=== PATIENT | female | born 1955 | race Caucasian/White ===

== ENCOUNTER 2021-02-21 12:08 | Emergency (ER) | payer SELFPAY ==
--- NOTE | 2021-02-21 13:59 | RAD REPORT ---
EXAM DESCRIPTION: RAD - Humerus Right - 02/21/2021 1:50 pm CLINICAL HISTORY: PAIN FINDINGS: Mildly impacted fracture of the proximal right humerus is present. No dislocation is evide nt.
--- NOTE | 2021-02-21 14:13 | ER ---
Nurse's Notes [facility] Name: Isadora Fall Age: 65 yrs Sex: Female : 1955 Arrival Date: 02/21/2021 Time: 12:13 Bed 14 Private MD: Diagnosis: Displaced fracture head of right humerus Presentation: 02/21 12:39 Chief complaint: Patient states: R shoulder/ upper arm pain that began this morning ss after falling from a standing in the garden. Coronavirus screen: Client denies travel out of the [place] in the last 14 days. Ebola Screen: Patient denies exposure to infectious person. Patient denies travel to an Ebola-affected area in the 21 days before illness onset. Initial Sepsis Screen: Does the patient meet any 2 criteria? No. Patient's initial sepsis screen is negative. Does the patient have a suspected source of infection? No. Patient's initial sepsis screen is negative. Risk Assessment: Do you want to hurt yourself or someone else? Patient reports no desire to harm self or others. Onset of symptoms was February 21, 2021. 12:39 Method Of Arrival: Ambulatory ss 12:39 Acuity: ASHLEY 4 ss Triage Assessment: 13:06 General: Appears uncomfortable, Behavior is calm, cooperative, appropriate for age. ll1 Pain: Complains of pain in R shoulder Quality of pain is described as aching. Neuro: No deficits noted. Cardiovascular: No deficits noted. Respiratory: No deficits noted. Musculoskeletal: Circulation, motion, and sensation intact. Capillary refill < 3 seconds, Range of motion: limited in R shoulder Tenderness present in R shoulder Reports pain in R shoulder. Injury Description: fall/R shoulder pain. Historical: - Allergies: 13:05 No Known Allergies; ll1 - PSHx: 13:05 None; ll1 - Immunization history:: Adult Immunizations up to date. - Social history:: Smoking status: Patient denies any tobacco usage or history of. Screenin:38 Abuse screen: Denies threats or abuse. Nutritional screening: No deficits noted. ll1 Tuberculosis screening: No symptoms or risk factors identified. Fall Risk Fall in past 12 months (25 points). Total Leon Fall Scale indicates No Risk (0-24 pts). Assessment: 14:00 Reassessment: No changes from previously documented assessment. Patient and/or family ll1 updated on plan of care and expected duration. Pain level reassessed. 14:35 Reassessment: No changes from previously documented assessment. Patient and/or family ll1 updated on plan of care and expected duration. Pain level reassessed. Patient is alert, oriented x 3, equal unlabored respirations, skin warm/dry/pink. Vital Signs: 12:39 BP 137 / 82; Pulse 91; Resp 18; Temp 98.7(TE); Pulse Ox 98% on R/A; Weight 97.52 kg; ss Height 5 ft. 8 in. (172.72 cm); Pain 0/10; 14:34 BP 148 / 64; Pulse 94; Resp 17; Pulse Ox 97% on R/A; ll1 12:39 Body Mass Index 32.69 (97.52 kg, 172.72 cm) ED Course: 12:13 Patient arrived in ED. mr 12:29 Abdiel María, [facility]. kb 12:29 Jer Vargas MD is Attending Physician. kb 12:39 Arm band placed on right wrist. ss 12:41 Triage completed. ss 13:04 Audra Samaniego, RN is Primary Nurse. ll1 13:50 Humerus Right XRAY In Process Unspecified. EDMS 14:38 Patient has correct armband on for positive identification. Bed in low position. Call ll1 light in reach. Side rails up X 1. Cardiac monitoring not applicable on this patient. 14:38 No provider procedures requiring assistance completed. Patient did not have IV access ll1 during this emergency room visit. Administered Medications: 14:14 Not Given (Patient Refused): [place] (HYDROcodone-acetaminophen) 5 mg-325 mg 1 tabs PO ll1 once; RASS on ADMIN: Combtv4, Very Agttd3, Agttd2, Rstlss1, AlertClm0, Drwsy-1, Lt Sdtn-2, Mod Sdtn-3, Dp Sdtn-4, UnArsble-5 Outcome: 14:13 Discharge ordered by . kb 14:38 Discharged to home ambulatory. ll1 14:38 Condition: stable 14:38 Discharge instructions given to patient, Instructed on discharge instructions, follow up and referral plans. medication usage, Demonstrated understanding of instructions, follow-up care, medications, Prescriptions given X 1. 14:39 Patient left the ED. ll1 Signatures: Dispatcher [employer] EDMS María Meadows, GENAROC TUCKER-Franklin RockaIsadora mr Lydia Fam RN RN ss Audra Samaniego RN RN ll1
--- NOTE | 2021-02-21 14:13 | EDPHYS ---
Physician Documentation [facility] Name: Isadora Fall Age: 65 yrs Sex: Female : 1955 Arrival Date: 02/21/2021 Time: 12:13 Bed 14 Private MD: ED Physician Jer Vargas HPI: 02/21 16:28 This 65 yrs old Female presents to ER via Ambulatory with complaints of Fall kb Injury, Arm Pain. 16:28 Details of fall: The patient fell from an upright position, while walking. Onset: The kb symptoms/episode began/occurred just prior to arrival. Associated injuries: The patient sustained anterior aspect of right shoulder, decreased range of motion, painful injury. Severity of symptoms: At their worst the symptoms were moderate, in the emergency department the symptoms are unchanged. The patient has not experienced similar symptoms in the past. The patient has not recently seen a physician. Pt reports she tripped in the yard and landed on right shoulder. c/o pain and decreased ROM to right shoulder. . Historical: - Allergies: 13:05 No Known Allergies; ll1 - PSHx: 13:05 None; ll1 - Immunization history:: Adult Immunizations up to date. - Social history:: Smoking status: Patient denies any tobacco usage or history of. ROS: 16:28 Constitutional: Negative for fever, chills, and weight loss, Respiratory: Negative for kb shortness of breath, cough, wheezing, and pleuritic chest pain, Skin: Negative for injury, rash, and discoloration, Neuro: Negative for headache, weakness, numbness, tingling, and seizure. 16:28 MS/extremity: Positive for injury or acute deformity, decreased range of motion, pain. Exam: 16:26 Constitutional: This is a well developed, well nourished patient who is awake, alert, kb and in no acute distress. Head/Face: Normocephalic, atraumatic. Respiratory: Respirations even and unlabored. No increased work of breathing, no retractions or nasal flaring. Skin: Warm, dry with normal turgor. Normal color. Neuro: Awake and alert, GCS 15, oriented to person, place, time, and situation. Moves all extremities. Normal gait. 16:26 Musculoskeletal/extremity: Extremities: grossly normal except: noted in the anterior aspect of right shoulder: decreased ROM, pain, ROM: limited active range of motion, in the anterior aspect of right shoulder, Circulation is intact in all extremities. Sensation intact. Vital Signs: 12:39 BP 137 / 82; Pulse 91; Resp 18; Temp 98.7(TE); Pulse Ox 98% on R/A; Weight 97.52 kg; ss Height 5 ft. 8 in. (172.72 cm); Pain 0/10; 14:34 BP 148 / 64; Pulse 94; Resp 17; Pulse Ox 97% on R/A; ll1 12:39 Body Mass Index 32.69 (97.52 kg, 172.72 cm) ss MDM: 12:30 Patient medically screened. kb 14:02 Data reviewed: vital signs, nurses notes. Data interpreted: Pulse oximetry: on room air kb is 98 %. Interpretation: normal. Counseling: I had a detailed discussion with the patient and/or guardian regarding: the historical points, exam findings, and any diagnostic results supporting the discharge/admit diagnosis, radiology results, the need for outpatient follow up, a orthopedic surgeon, to return to the emergency department if symptoms worsen or persist or if there are any questions or concerns that arise at home. 02/21 12:33 Order name: Humerus Right XRAY; Complete Time: 14:02 kb 02/21 13:46 Order name: Sling; Complete Time: 14:04 kb 02/21 14:05 Order name: Shoulder Immobilizer; Complete Time: 14:09 kb Administered Medications: 14:14 Not Given (Patient Refused): [place] (HYDROcodone-acetaminophen) 5 mg-325 mg 1 tabs PO ll1 once; RASS on ADMIN: Combtv4, Very Agttd3, Agttd2, Rstlss1, AlertClm0, Drwsy-1, Lt Sdtn-2, Mod Sdtn-3, Dp Sdtn-4, UnArsble-5 Disposition: 02/22 07:30 Co-signature as Attending Physician, Jer Vargas MD I agree with the assessment and mindy plan of care. Disposition: 02/21/21 14:13 Discharged to Home. Impression: Displaced fracture head of right humerus. - Condition is Stable. - Discharge Instructions: Humerus Fracture Treated With Immobilization, Awee-so-Wbvh. - Prescriptions for Tylenol- Codeine #3 300-30 mg Oral Tablet - take 2 tablets by ORAL route every 6 hours As needed; 16 tablet. - Medication Reconciliation Form, Thank You Letter, Antibiotic Education, Prescription Opioid Use form. - Follow up: Emergency Department; When: As needed; Reason: Worsening of condition. Follow up: Private Physician; When: 2 - 3 days; Reason: Recheck today's complaints, Continuance of care, Re-evaluation by your physician. Signatures: Dispatcher [employer] EDMaría Headley, TUCKER-Randolph NULLP-Jer Aguirre MD MD cha Lewis, Lynsay RN RN ll1 Corrections: (The following items were deleted from the chart) 02/21 14:39 14:13 02/21/2021 14:13 Discharged to Home. Impression: Displaced fracture head of right ll1 humerus. Condition is Stable. Forms are Medication Reconciliation Form, Thank You Letter, Antibiotic Education, Prescription Opioid Use. Follow up: Emergency Department; When: As needed; Reason: Worsening of condition. Follow up: Private Physician; When: 2 - 3 days; Reason: Recheck today's complaints, Continuance of care, Re-evaluation by your physician. kb
[2021-02-21] MEDS ORDERED: HYDROCODONE/APAP 5/325 MG TAB ONE (14:30)
[2021-02-21 16:24] VITALS: TEMP 98.7
[2021-02-21 16:25] VITALS: BP 148/64; O2SAT 97
== END 2021-02-21 14:39 | disposition home or self-care (01) ==
LOC: ER 12:08
PROC: 2W38X1Z Immobilization of Right Upper Extremity using Splint (ICD-10-PCS; principal; 2021-02-21)
DX: S42.391A Other fracture of shaft of right humerus, initial encounter for closed fracture (principal); W01.0XXA Fall on same level from slipping, tripping and stumbling without subsequent striking against object, initial encounter; Y93.01 Activity, walking, marching and hiking; Y92.89 Other specified places as the place of occurrence of the external cause
CPT/HCPCS: 99283

== ENCOUNTER 2023-10-02 12:22 | Inpatient (IN) | payer MEDICARE, OTHER ==
--- OUTSIDE RECORDS SUMMARY | 2023-10-02 12:24 | XMS REPORT | Continuity of Care Document ---
:1955 Author Organization [facility] t Address [address] [place] [address] Care Team Providers Name Role Phone Nando Dean Attending Clinician Payers Payer Name Policy Type Policy Number Effective Date Expiration Date merissa [facility] [id number] (MEDICARE 00:00:00 REPLACEMENT HMO) Problems This patient has no known problems. Allergies, Adverse Reactions, Alerts This patient has no known allergies or adverse reactions. Medications This patient has no known medications. Procedures This patient has no known procedures. Encounters Start End Encounter Admission Attending Care Care Encounter Source Date/Time Date/Time Type Type Clinicians Facility Department ID 2023-06-18 2023-06-18 D2Me Nando [id number] [facility] [id number] [facility] 17:30:00 18:30:00 Jermaine [id number] [facility] [id number] 2023-03-20 2023-03-20 [id number] 00:00:00 00:00:00 [id number] [facility] 2022-08-31 2022-08-31 [facility] [id number] [facility] 00:00:00 00:00:00 [id number] [facility] l [facility] Results This patient has no known results.
[2023-10-02] MEDS ORDERED: FENTANYL CITR 100 MCG/2 ML ONE ×2 (12:50→15:06)
[2023-10-02] MEDS ORDERED: NA CHLORIDE 0.9% 1,000 ML ONE ×2 (12:50→14:51)
[2023-10-02] MEDS ORDERED: FAMOTIDINE 20 MG/2 ML VIAL IV ONE (12:50)
[2023-10-02] MEDS ORDERED: ONDANSETRON 4 MG/2 ML VIAL ONE (12:50)
[2023-10-02 12:51] LABS: Absolute Lymphocytes (CBC) 0.6 K/uL (0.7-4.9); Hematocrit 37.7 % (36.0-45.0); Lymphocytes % 4.4 % (15.3-44.8); MCV 89.8 fL (80-100); MPV 7.2 fL (7.6-11.3); Platelets 196 thou/uL (152-406)
[2023-10-02 12:56] LABS: Protime INR 1.14
[2023-10-02 13:17] LABS: Blood Morphology Comment NOT SEEN (NOT SEEN); Platelet Estimate ADEQ; White Blood Cell Scan OK (OK)
[2023-10-02 13:18] LABS: Albumin 3.5 g/dL (3.4-5.0); Bilirubin Direct 0.3 mg/dL (0-0.2); Bilirubin Indirect, Calculated 0.6 mg/dL (0.2-0.8); Bilirubin Total 0.9 mg/dL (0.2-1.0); Magnesium 1.2 mg/dL (1.6-2.4); Potassium 3.5 mEq/L (3.5-5.1); Protein, Total 6.9 g/dL (6.4-8.2)
--- NOTE | 2023-10-02 13:38 | ER ---
Nurse's Notes [facility] Name: Isadora Fall Age: 67 yrs Sex: Female : 1955 Arrival Date: 10/02/2023 Time: 12:22 Bed 19 Private MD: Diagnosis: Dizziness and giddiness;Displaced intertrochanteric fracture of right femur;Fall on same level, unspecified;Abnormal levels of other serum enzymes-elevated troponin;Elevated white blood cell count;Hypomagnesemia Presentation: 10/02 12:46 Chief complaint: EMS states: patient fell at home and is complaining of right hip pain. tm6 Coronavirus screen: Vaccine status: Patient reports being unvaccinated. Client denies travel out of the [place] in the last 14 days. Ebola Screen: Patient negative for fever greater than or equal to 101.5 degrees Fahrenheit, and additional compatible Ebola Virus Disease symptoms Patient denies exposure to infectious person. Patient denies travel to an Ebola-affected area in the 21 days before illness onset. No symptoms or risks identified at this time. Initial Sepsis Screen: Does the patient meet any 2 criteria? HR > 90 bpm. No. Patient's initial sepsis screen is negative. Does the patient have a suspected source of infection? No. Patient's initial sepsis screen is negative. Risk Assessment: Do you want to hurt yourself or someone else? Patient reports no desire to harm self or others. Onset of symptoms was October 02, 2023 at 10:00. 12:46 Method Of Arrival: EMS: [facility] tm6 12:46 Acuity: ASHLEY 3 tm6 Triage Assessment: 12:49 General: Appears in no apparent distress. Behavior is calm, cooperative, appropriate tm6 for age. Pain: Complains of pain in right hip Pain currently is 4 out of 10 on a pain scale. Aggravated by repositioning. EENT: No signs and/or symptoms were reported regarding the EENT system. Neuro: Level of Consciousness is awake, alert, obeys commands, Oriented to person, place, time, situation. Cardiovascular: Capillary refill < 3 seconds Patient's skin is warm and dry. Rhythm is sinus tachycardia. Respiratory: Airway is patent Respiratory effort is even, unlabored, Respiratory pattern is regular, symmetrical. GI: Abdomen is round non-distended. : No signs and/or symptoms were reported regarding the genitourinary system. Derm: No signs and/or symptoms reported regarding the dermatologic system. Musculoskeletal: Reports pain in right hip since fall 2-3 hours ago. Injury Description: fall injury to right hip. Historical: - Allergies: 12:49 No Known Allergies; tm6 - PMHx: 12:49 diabetes mellitus; Glaucoma; tm6 - PSHx: 12:49 eye surgery; tm6 - Immunization history:: Adult Immunizations up to date. - Social history:: Smoking status: Patient denies any tobacco usage or history of. Patient/guardian denies using alcohol. Screenin:53 [facility] ED Fall Risk Assessment (Adult) History of falling in the last 3 months, tm6 including since admission Yes- single mechanical fall (1 pt) Confusion or Disorientation No (0 pts) Intoxicated or Sedated No (0 pts) Impaired Gait Yes (1 pt) Mobility Assist Device Used Yes (1 pt) Altered Elimination No (0 pt) Score/Fall Risk Level 3 or more points = High Risk. Abuse screen: Denies threats or abuse. Denies injuries from another. Nutritional screening: No deficits noted. Tuberculosis screening: No symptoms or risk factors identified. Assessment: 12:53 Reassessment: see triage assessment. tm6 Vital Signs: 12:46 BP 100 / 52; Pulse 104; Resp 17; Temp 99(O); Pulse Ox 100% ; Weight 90.72 kg; Height 5 tm6 ft. 7 in. ; Pain 4/10; 12:49 BP 100 / 52; Pulse 106; Resp 17; Temp 99(O); Pulse Ox 100% on R/A; tm6 13:15 BP 142 / 125; Pulse 107; Resp 18; Pulse Ox 100% ; me1 13:45 BP 162 / 75; Pulse 103; Resp 17; Pulse Ox 100% on R/A; me1 14:15 BP 114 / 65; Pulse 100; Resp 17; Pulse Ox 98% on R/A; me1 14:36 BP 194 / 75; Pulse 104; Resp 18; Pulse Ox 100% on R/A; me1 15:24 BP 109 / 61; Pulse 79; Resp 16; Pulse Ox 100% on R/A; me1 16:31 BP 129 / 62; Pulse 78; Resp 18; Pulse Ox 100% ; me1 17:30 BP 128 / 78; Pulse 82; Resp 19; Pulse Ox 97% ; me1 18:00 BP 132 / 57; Pulse 84; Resp 17; Pulse Ox 100% on R/A; me1 12:46 Body Mass Index 31.32 (90.72 kg, 170.18 cm) tm6 12:46 Pain Scale: Adult tm6 ED Course: 12:24 Patient arrived in ED. eb 12:24 Jer Vargas MD is Attending Physician. mindy 12:42 Inserted saline lock: 20 gauge in left antecubital area, using aseptic technique. Blood tm6 collected. 12:43 PT-INR Sent. tm6 12:43 Type And Screen Sent. tm6 12:43 Troponin HS Sent. tm6 12:43 NT PRO-BNP Sent. tm6 12:43 Magnesium Sent. tm6 12:43 LFT's Sent. tm6 12:43 CBC with Diff Sent. tm6 12:43 Basic Metabolic Panel Sent. tm6 12:45 Aidan Rees, SUSHIL is Primary Nurse. tm6 12:49 Triage completed. tm6 12:49 Arm band placed on left wrist. EKG completed in triage. Results shown to MD. tm6 12:53 No provider procedures requiring assistance completed. tm6 12:53 Patient has correct armband on for positive identification. Bed in low position. Call tm6 light in reach. Side rails up X2. Provided Education on: pain scale and pain medication. Client placed on continuous cardiac and pulse oximetry monitoring. NIBP monitoring applied. Door closed. Noise minimized. Warm blanket given. 13:35 Linwood Rene is Hospitalizing Provider. mindy 13:41 XRAY Chest (1 view) In Process Unspecified. EDMS 13:41 Pelvis XRAY In Process Unspecified. EDMS 13:41 Femur Right XRAY In Process Unspecified. EDMS 15:42 IV discontinued, intact, bleeding controlled, No redness/swelling at site. Pressure me1 dressing applied. 15:43 Inserted saline lock: 22 gauge in left antecubital area, using aseptic technique. me1 Administered Medications: 12:42 Drug: NS 0.9% IV 1000 ml IV at 125 ml/hr continuous Route: IV; Rate: 125 ml/hr; Site: tm6 left antecubital; 18:34 Follow up: IV Status: Infusion continued upon admission me1 12:42 Drug: Famotidine IVP 20 mg IVP once; dilute with 10 mL 0.9% NaCl; give over 2 minutes tm6 Route: IVP; Site: left antecubital; 18:34 Follow up: Response: No adverse reaction me1 12:42 Drug: Ondansetron IVP 4 mg IVP once; over 2 minutes Route: IVP; Site: left antecubital; tm6 18:33 Follow up: Response: No adverse reaction me1 14:50 Drug: Aspirin PO Chewable Tablet 324 mg PO once; 81 mg tablets x 4 Route: PO; me1 18:33 Follow up: Response: No adverse reaction me1 14:50 Drug: Metoprolol PO 25 mg PO once Route: PO; me1 18:33 Follow up: Response: No adverse reaction me1 14:50 Drug: Magnesium Sulfate IVPB 2 grams IVPB once over 2 hrs Route: IVPB; Infused Over: 2 me1 hrs; Site: left antecubital; 16:58 Follow up: IV Status: Completed infusion me1 14:57 Drug: fentaNYL (PF) IVP 50 mcg IVP once Route: IVP; Site: left antecubital; me1 18:33 Follow up: Response: No adverse reaction me1 18:33 Follow up: Response: Pain is decreased me1 Medication: 12:53 VIS not applicable for this client. tm6 Outcome: 13:37 Decision to Hospitalize by Provider. mindy 18:45 Admitted to Tele accompanied by [facility], via stretcher, room 401, with chart, Report me1 called to SUSHIL Diaz 18:45 Condition: stable 19:12 Patient left the ED. me1 Signatures: Dispatcher [employer] Jer Celis MD MD cha Botello, Elizabeth eb Eddleman, Michelle, RN RN me1 Aidan Rees RN RN tm6 Corrections: (The following items were deleted from the chart) 18:36 15:43 Inserted saline lock: 22 gauge in right antecubital area, using aseptic me1 technique. me1
--- NOTE | 2023-10-02 13:38 | EDPHYS ---
Physician Documentation [facility] Name: Isadora Fall Age: 67 yrs Sex: Female : 1955 Arrival Date: 10/02/2023 Time: 12:22 Bed 19 Private MD: ED Physician Jer Vargas HPI: 10/02 13:25 This 67 yrs old Female presents to ER via EMS with complaints of Hip Pain, mindy Fall Injury. 13:25 The patient or guardian reports decreased range of motion, pain. the right lower mindy extremity is shortened, right leg is externally rotated, The patient is not able to ambulate. Patient is not able to bear weight. The complaints affect the right hip. Onset: The symptoms/episode began/occurred just prior to arrival, this morning. Modifying factors: The symptoms are alleviated by nothing. Associated signs and symptoms: Loss of consciousness: the patient experienced no loss of consciousness. Severity of symptoms: At their worst the symptoms were mild, in the emergency department the symptoms are unchanged. The patient has not experienced similar symptoms in the past. Historical: - Allergies: 12:49 No Known Allergies; tm6 - PMHx: 12:49 diabetes mellitus; Glaucoma; tm6 - PSHx: 12:49 eye surgery; tm6 - Immunization history:: Adult Immunizations up to date. - Social history:: Smoking status: Patient denies any tobacco usage or history of. Patient/guardian denies using alcohol. ROS: 13:30 Constitutional: Negative for fever, chills, and weight loss, Eyes: Negative for injury, mindy pain, redness, and discharge, ENT: Negative for injury, pain, and discharge, Neck: Negative for injury, pain, and swelling, Cardiovascular: Negative for chest pain, palpitations, and edema, Respiratory: Negative for shortness of breath, cough, wheezing, and pleuritic chest pain, Abdomen/GI: Negative for abdominal pain, nausea, vomiting, diarrhea, and constipation, Back: Negative for injury and pain, : Negative for injury, bleeding, discharge, and swelling, Skin: Negative for injury, rash, and discoloration, Neuro: Negative for headache, weakness, numbness, tingling, and seizure, Psych: Negative for depression, anxiety, suicide ideation, homicidal ideation, and hallucinations, Allergy/Immunology: Negative for hives, rash, and allergies, Endocrine: Negative for neck swelling, polydipsia, polyuria, polyphagia, and marked weight changes, Hematologic/Lymphatic: Negative for swollen nodes, abnormal bleeding, and unusual bruising, 13:30 MS/extremity: Positive for decreased range of motion, pain, of the right hip and right upper thigh, Exam: 13:30 Constitutional: This is a well developed, well nourished patient who is awake, alert, mindy and in no acute distress. Head/Face: Normocephalic, atraumatic. Eyes: Pupils equal round and reactive to light, extra-ocular motions intact. Lids and lashes normal. Conjunctiva and sclera are non-icteric and not injected. Cornea within normal limits. Periorbital areas with no swelling, redness, or edema. ENT: Nares patent. No nasal discharge, no septal abnormalities noted. Tympanic membranes are normal and external auditory canals are clear. Oropharynx with no redness, swelling, or masses, exudates, or evidence of obstruction, uvula midline. Mucous membranes moist. Neck: Trachea midline, no thyromegaly or masses palpated, and no cervical lymphadenopathy. Supple, full range of motion without nuchal rigidity, or vertebral point tenderness. No Meningismus. Chest/axilla: Normal chest wall appearance and motion. Nontender with no deformity. No lesions are appreciated. Cardiovascular: Regular rate and rhythm with a normal S1 and S2. No gallops, murmurs, or rubs. Normal PMI, no JVD. No pulse deficits. Respiratory: Lungs have equal breath sounds bilaterally, clear to auscultation and percussion. No rales, rhonchi or wheezes noted. No increased work of breathing, no retractions or nasal flaring. Abdomen/GI: Soft, non-tender, with normal bowel sounds. No distension or tympany. No guarding or rebound. No evidence of tenderness throughout. Back: No spinal tenderness. No costovertebral tenderness. Full range of motion. Skin: Warm, dry with normal turgor. Normal color with no rashes, no lesions, and no evidence of cellulitis. Neuro: Awake and alert, GCS 15, oriented to person, place, time, and situation. Cranial nerves II-XII grossly intact. Motor strength 5/5 in all extremities. Sensory grossly intact. Cerebellar exam normal. Normal gait. Psych: Awake, alert, with orientation to person, place and time. Behavior, mood, and affect are within normal limits. 13:30 ECG was reviewed by the Attending Physician. 13:30 Musculoskeletal/extremity: ROM: limited active range of motion due to pain, limited passive range of motion due to pain, in the right hip and right upper thigh, Circulation is intact in all extremities. Sensation intact. Compartment Syndrome exam of affected extremity: is normal. no numbness, no tingling, no sensation deficit, no palor, no weak pulses, severe pain, Weight bearing: is unable to bear weight, DVT Exam: negative Homans' sign noted on exam, no appreciated bluish discoloration, no erythema, no increased warmth, pain, swelling, tenderness, Vital Signs: 12:46 BP 100 / 52; Pulse 104; Resp 17; Temp 99(O); Pulse Ox 100% ; Weight 90.72 kg; Height 5 tm6 ft. 7 in. ; Pain 4/10; 12:49 BP 100 / 52; Pulse 106; Resp 17; Temp 99(O); Pulse Ox 100% on R/A; tm6 13:15 BP 142 / 125; Pulse 107; Resp 18; Pulse Ox 100% ; me1 13:45 BP 162 / 75; Pulse 103; Resp 17; Pulse Ox 100% on R/A; me1 14:15 BP 114 / 65; Pulse 100; Resp 17; Pulse Ox 98% on R/A; me1 14:36 BP 194 / 75; Pulse 104; Resp 18; Pulse Ox 100% on R/A; me1 15:24 BP 109 / 61; Pulse 79; Resp 16; Pulse Ox 100% on R/A; me1 16:31 BP 129 / 62; Pulse 78; Resp 18; Pulse Ox 100% ; me1 17:30 BP 128 / 78; Pulse 82; Resp 19; Pulse Ox 97% ; me1 18:00 BP 132 / 57; Pulse 84; Resp 17; Pulse Ox 100% on R/A; me1 12:46 Body Mass Index 31.32 (90.72 kg, 170.18 cm) tm6 12:46 Pain Scale: Adult tm6 MDM: 12:24 Patient medically screened. mindy 13:33 Differential diagnosis: hip fracture, intertrochanteric fracture, femoral neck mindy fracture, femoral shaft fracture. Differential diagnosis: cardiac arrhythmia, hypovolemia, idiopathic dizziness, near-syncope. Data reviewed: vital signs, nurses notes, lab test result(s), EKG, radiologic studies, plain films. Consideration of Admission/Observation Patient was admitted/placed on observation. Escalation of care including admission/observation considered. I considered the following discharge prescriptions or medication management in the emergency department Medications were administered in the Emergency Department. See MAR. Test considered but Not performed: CT: no ct head. Historians other than the Patient: EMS: ems well informed. Care significantly affected by the following chronic conditions: Diabetes, galaucoma. Counseling: I had a detailed discussion with the patient and/or guardian regarding the historical points, exam findings, and any diagnostic results supporting the discharge/admit diagnosis, lab results, radiology results, the need for further work-up and treatment in the hospital. 10/02 12:27 Order name: Basic Metabolic Panel; Complete Time: 13:37 mindy 10/02 12:27 Order name: CBC with Diff; Complete Time: 13:37 mindy 10/02 12:27 Order name: LFT's; Complete Time: 13:37 mindy 10/02 12:27 Order name: Magnesium; Complete Time: 13:37 mindy 10/02 12:27 Order name: NT PRO-BNP; Complete Time: 13:37 mindy 10/02 12:27 Order name: Troponin HS; Complete Time: 13:37 mindy 10/02 12:27 Order name: PT-INR; Complete Time: 13:37 mindy 10/02 12:29 Order name: Type And Screen; Complete Time: 13:37 mindy 10/02 13:17 Order name: CBC Smear Scan; Complete Time: 13:37 EDMS 10/02 15:22 Order name: Basic Metabolic Panel EDMS 10/02 15:22 Order name: Basic Metabolic Panel EDMS 10/02 15:22 Order name: Basic Metabolic Panel EDMS 10/02 15:22 Order name: Basic Metabolic Panel EDMS 10/02 15:22 Order name: Basic Metabolic Panel EDMS 10/02 15:22 Order name: Basic Metabolic Panel EDMS 10/02 15:22 Order name: CBC with Automated Diff EDMS 10/02 15:22 Order name: CBC with Automated Diff EDMS 10/02 15:22 Order name: CBC with Automated Diff EDMS 10/02 15:22 Order name: CBC with Automated Diff EDMS 10/02 15:22 Order name: CBC with Automated Diff EDMS 10/02 15:22 Order name: CBC with Automated Diff EDMS 10/02 15:22 Order name: Magnesium EDMS 10/02 15:22 Order name: Magnesium EDMS 10/02 15:22 Order name: Magnesium EDMS 10/02 15:22 Order name: Magnesium EDMS 10/02 15:22 Order name: Magnesium EDMS 10/02 15:22 Order name: Magnesium EDMS 10/02 15:22 Order name: Phosphorus EDMS 10/02 15:22 Order name: Phosphorus EDMS 10/02 15:22 Order name: Phosphorus EDMS 10/02 15:22 Order name: Phosphorus EDMS 10/02 15:22 Order name: Phosphorus EDMS 10/02 15:22 Order name: Phosphorus EDMS 10/02 15:22 Order name: Troponin High Sensitivity EDMS 10/02 15:22 Order name: Troponin High Sensitivity EDMS 10/02 15:22 Order name: Troponin High Sensitivity EDMS 10/02 17:25 Order name: ABO/RH no charge; Complete Time: 18:34 EDMS 10/02 12:27 Order name: XRAY Chest (1 view); Complete Time: 18:34 [facility] 10/02 12:27 Order name: Pelvis XRAY; Complete Time: 18:34 [facility] 10/02 12:27 Order name: Femur Right XRAY; Complete Time: 18:34 mindy 10/02 12:27 Order name: EKG; Complete Time: 12:28 mindy 10/02 15:22 Order name: CONS Physician Consult EDMS 10/02 15:22 Order name: CONS Physician Consult EDMS 10/02 12:27 Order name: Cardiac monitoring; Complete Time: 12:33 mindy 10/02 12:27 Order name: EKG - Nurse/Tech; Complete Time: 12:54 mindy 10/02 12:27 Order name: IV Saline Lock; Complete Time: 12:42 [facility] 10/02 12:27 Order name: Labs collected and sent; Complete Time: 12:42 [facility] 10/02 12:27 Order name: O2 Per Protocol; Complete Time: 12:33 mindy 10/02 12:27 Order name: O2 Sat Monitoring; Complete Time: 12:33 [facility] EC:30 Rate is 104 beats/min. Rhythm is regular. QRS [place] is Normal. [place] interval is normal. mindy QRS interval is normal. QT interval is normal. No Q waves. T waves are Normal. No ST changes noted. Clinical impression: Sinus tachycardia. Interpreted by me. Reviewed by me. Administered Medications: 12:42 Drug: NS 0.9% IV 1000 ml IV at 125 ml/hr continuous Route: IV; Rate: 125 ml/hr; Site: tm6 left antecubital; 18:34 Follow up: IV Status: Infusion continued upon admission me1 12:42 Drug: Famotidine IVP 20 mg IVP once; dilute with 10 mL 0.9% NaCl; give over 2 minutes tm6 Route: IVP; Site: left antecubital; 18:34 Follow up: Response: No adverse reaction me1 12:42 Drug: Ondansetron IVP 4 mg IVP once; over 2 minutes Route: IVP; Site: left antecubital; tm6 18:33 Follow up: Response: No adverse reaction me1 14:50 Drug: Aspirin PO Chewable Tablet 324 mg PO once; 81 mg tablets x 4 Route: PO; me1 18:33 Follow up: Response: No adverse reaction me1 14:50 Drug: Metoprolol PO 25 mg PO once Route: PO; me1 18:33 Follow up: Response: No adverse reaction me1 14:50 Drug: Magnesium Sulfate IVPB 2 grams IVPB once over 2 hrs Route: IVPB; Infused Over: 2 me1 hrs; Site: left antecubital; 16:58 Follow up: IV Status: Completed infusion me1 14:57 Drug: fentaNYL (PF) IVP 50 mcg IVP once Route: IVP; Site: left antecubital; me1 18:33 Follow up: Response: No adverse reaction me1 18:33 Follow up: Response: Pain is decreased me1 Disposition Summary: 10/02/23 13:37 Hospitalization Ordered Notes: Hospitalization Status: Inpatient Admission mindy Provider: Linwood Rene cha Location: Telemetry/MedSurg (Inpatient) mindy Condition: Fair mindy Problem: new mindy Symptoms: have improved mindy Bed/Room Type: Standard mindy Room Assignment: 401(10/02/23 17:41) iw Diagnosis - Dizziness and giddiness mindy - Displaced intertrochanteric fracture of right femur mindy - Fall on same level, unspecified mindy - Abnormal levels of other serum enzymes - elevated troponin mindy - Elevated white blood cell count mindy - Hypomagnesemia mindy Forms: - Medication Reconciliation Form mindy - SBAR form mindy - Leadership Thank You Letter mindy Signatures: Dispatcher [employer] EDJer Dias MD MD cha Williams, Irene, RN RN iw Erendira Fuentes RN RN me1 Aidan Rees RN RN tm6 Corrections: (The following items were deleted from the chart) 13:03 12:28 Hip Right 2 View+RAD.RAD.BRZ ordered. [facility] EDMS 17:41 13:37 mindy joaquin
--- NOTE | 2023-10-02 13:45 | RAD REPORT ---
EXAM DESCRIPTION: Brian Single View10/02/2023 1:39 pm CLINICAL HISTORY: Chest pain COMPARISON: none FINDINGS: The lungs appear clear of acute infiltrate. The heart is normal size IMPRESSION: No acute abnormalities displayed
--- NOTE | 2023-10-02 13:46 | RAD REPORT ---
EXAM DESCRIPTION: RAD - Femur Right - 10/02/2023 1:39 pm CLINICAL HISTORY: Foot pain FINDINGS: Intertrochanteric fracture right femur extends to the greater trochanter. Angulation present at the fracture site with mild displacement. No dislocation
--- NOTE | 2023-10-02 13:46 | RAD REPORT ---
EXAM DESCRIPTION: RAD - Pelvis - 10/02/2023 1:39 pm CLINICAL HISTORY: Pelvic pain status post injury FINDINGS: Intertrochanteric fracture right femur extends to the greater trochanter. Angulation present at the fracture site with mild displacement. No dislocation
[2023-10-02] MEDS ORDERED: Magnesium Sulfate 2gm IVPB 2 G/50 ML BAG IV ONE (14:50)
[2023-10-02] MEDS ORDERED: ASPIRIN 81 MG CHEWABLE TABLET ONE (14:50)
[2023-10-02] MEDS ORDERED: METOPROLOL TAR 25 MG TAB ONE (14:50)
[2023-10-02] MEDS ORDERED: D10W 250 ML BAG IV PRN (15:21)
[2023-10-02] MEDS ORDERED: GLUCAGON 1 MG/VIAL IM PRN (15:21)
--- NOTE | 2023-10-02 15:40 | P.HP ---
Certification for Inpatient Patient admitted to: Inpatient With expected LOS: >2 Midnights Patient will require the following post-hospital care: None Practitioner: I am a practitioner with admitting privileges, knowledge of patient current condition, hospital course, and medical plan of care. Services: Services provided to patient in accordance with Admission requirements found in Title 42 Section 412.3 of the Code of Federal Regulations Patient History Date of Service: 10/02/23 Reason for admission: right femur fracture History of Present Illness: Isadora Fall is a 71 XT 7-year-old female with past medical history of diabetes mellitus 2-NIDDM and glaucoma who presents to the ED today via ambulance due to fall at home. Isadora reports standing up out of bed and becoming dizzy while rushing to the bathroom when she fell. On examination right leg is externally rotated. Initial vitals BP 100 / 52; Pulse 104; Resp 17; Temp 99(O); Pulse Ox 100%, significant labs WBC 14, troponin 179.0, alk phos 150, proBNP 878, PT/INR 12.5/1.14. CT pelvis reports "ntertrochanteric fracture right femur extends to the greater trochanter. Angulation present at the fracture site with mild displacement. X-ray right femur reports "Intertrochanteric fracture right femur extends to the greater trochanter. Angulation present at the fracture site with mild disp lacement." Of note she states breaking her right arm twice, the second break was in July. Isadora will be admitted to hospitalist service for further evaluation and treatment. Dr. Welch consulted and surgery likely in the a.m. Dr. Georges consulted for cardiac clearance due to troponin elevation. Physical Examination - Studies Laboratory Data (last 24 hrs) 10/02/23 10/02/23 10/02/23 12:34 12:34 12:34 WBC 14.00 H Hgb 12.9 Hct 37.7 Plt Count 196 PT 12.5 INR 1.14 Sodium 139 Potassium 3.5 BUN 20 H Creatinine 0.62 Glucose 210 H Magnesium 1.2 L Total Bilirubin 0.9 AST 37 ALT 31 Alkaline Phosphatase 150 H Assessment and Plan - Plan Assessment and plan Right intertrochanteric femur fracture Trauma fall d/t dizziness Pelvis xray "intertrochanteric fracture right femur extends to the greater trochanter, angulation present at the frature site with mild displacement" Pain control Consult Dr. Welch- likely surgery in the AM (10/03) bedrest for now will need PT post op Elevated troponin Troponin 179.[address] Georges will see in the monring (10/03) Cardiac clearance needed Diabetes mellitus 2- NIDDM hold metformin accucheck with SIS DVT ppx SCD til orthopedic changes Full code LOS 3 days Discharge Plan: Home Plan to discharge in: 72 Hours - Advance Directives Does patient have a Living Will: No Does patient have a Durable POA for Healthcare: No Time Spent Managing Pts Care (In Minutes): 55
[2023-10-02] MEDS: INSULIN REGULAR (HUMAN) 100 UNIT/ML SQ SCH ×2 (16:30→20:25)
[2023-10-02] MEDS: NA CHLORIDE 0.9% 1,000 ML IV SCH (20:25)
[2023-10-02] MEDS: MORPHINE 2 MG/ML SYR IV PRN (20:25)
[2023-10-02 20:44] VITALS: BMI 31.3
[2023-10-03 02:41] LABS: Absolute Lymphocytes (CBC) 1.4 K/uL (0.7-4.9); Hematocrit 32.4 % (36.0-45.0); Lymphocytes % 16.2 % (15.3-44.8); MCV 89.9 fL (80-100); MPV 7.5 fL (7.6-11.3); Platelets 162 thou/uL (152-406)
[2023-10-03] MEDS: NA CHLORIDE 0.9% 1,000 ML IV SCH ×3 (02:55→22:31)
[2023-10-03 02:58] LABS: Magnesium 1.7 mg/dL (1.6-2.4); Phosphorus 2.4 mg/dL (2.5-4.9); Potassium 3.9 mEq/L (3.5-5.1)
[2023-10-03] MEDS: MORPHINE 2 MG/ML SYR IV PRN ×2 (03:59→17:02)
[2023-10-03] MEDS ORDERED: MAGNESIUM SULFATE 1 gm IVPB 1 GM/100 ML BAG IV ONE (07:30)
[2023-10-03] MEDS: INSULIN REGULAR (HUMAN) 100 UNIT/ML SQ SCH ×5 (07:30→20:33)
[2023-10-03] MEDS ORDERED: POTASSIUM PHOS IN 0.9 % NACL 15 MMOL/250 ML BAG IV ONE (09:00)
--- NOTE | 2023-10-03 09:55 | CON ---
Reason For Consultation: Right hip pain. History Of Present Illness: Ms. Fall is a 67-year-old female who presented to the ER after florin taining a fall onto her right side with subsequent pain and inability to bear weight. She is brought to the emergency room and diagnosed with a right intertrochanteric femur fracture. She was admitted to the floor for further evaluation and treatment. Prior to the fall, she denies any use of any ass ist devices. She denies any other musculoskeletal complaints at this time. Review of Systems: As above. Otherwise, negative. Past Medical History: Include, diabetes and glaucoma. Past Surgical History: Eye surgery. Allergies: NO KNOWN DRUG ALLERGIES. Social History: Denies tobacco or alcohol use. She lives at home by herself. Physical Examination: GENERAL: No apparent distress. HEENT: Normocephalic, atraumatic. NECK: Supple. CARDIOVASCULAR: Brisk cap refill to all digits. CHEST: Nonlabored breathing. ABDOMEN: Nondistended. PSYCHIATRIC: Response to exam. MUSCULOSKELETAL: Bilateral upper extremities functional range of motion without pain, no gross defor mities. No obvious dislocations left upper extremity. Left lower extremity functional range of konrad on without pain. No gross deformities. No obvious dislocations. Right lower extremity, tenderness to palpation of the proximal femur. Painful range of motion of right hip; sensation grossly intact t o the dorsal and plantar surface of the foot. Positive firing of EHL, FHL, gastrocsoleus complex, ti bialis anterior. Diagnostic Studies: X-rays of the right femur demonstrate a right displaced intertrochanteric femur fracture. Assessment And Plan: Ms. Fall is a 67-year-old female with a right intertrochanteric femur fra cture. I discussed with the patient at length the diagnosis as well as treatment plan. Given her un stable fracture pattern, recommend surgical fixation with cephalomedullary dai and screws. Risks and benefits associated with the procedure were discussed with the patient at length and she expressed u nderstanding. We will proceed with surgery tomorrow around lunch time after she had further cardiac evaluation given her elevated troponin, laboratory values admission from the ER. CV/MODL Voice ID: [id number] Report ID: [id number]
[2023-10-03] MEDS ORDERED: ACETAMINOPHEN 325 MG TABLET PO PRN (16:15)
--- NOTE | 2023-10-03 17:35 | P.PN ---
Subjective Date of Service: 10/03/23 Chief Complaint: right femur fracture Patient has no complaint except right hip pain. Low-grade fever today. She denies any chest pain or shortness of breath. She reported lightheadedness prior to the fall. Physical Examination - Vital Signs Temperature: 100.9 F Blood Pressure: 152/79 Pulse: 109 Respirations: 17 Pulse Ox (%): 96 - Physical Exam General: Alert, In no apparent distress, Oriented x3 HEENT: Atraumatic, Mucous membr. moist/pink, Sclerae nonicteric Neck: Supple, JVD not distended Respiratory: Clear to auscultation bilaterally, Normal air movement Cardiovascular: No edema, Regular rate/rhythm, Normal S1 S2 Gastrointestinal: Normal bowel sounds, Soft and benign, Non-distended, No tenderness Musculoskeletal: No swelling, Other (Externally rotated right leg) Integumentary: No rashes, No cyanosis Neurological: Other (No focal motor deficit) Assessment And Plan - Plan Assessment and Plan: Right intertrochanteric femur fracture Trauma fall d/t dizziness Pelvis xray "intertrochanteric fracture right femur extends to the greater trochanter, angulation present at the frature site with mild displacement" Analgesics as needed Consult Dr. Welch-is following. bedrest for now Fever Obtain urinalysis and urine culture Obtain blood culture Start empiric Rocephin Monitor CBC. Elevated troponin Troponin elevated but trended flat. Dr. Georges consulted to evaluate Cardiac clearance needed prior to orthopedic surgery. Diabetes mellitus 2- NIDDM hold metformin accucheck with SIS DVT ppx SCD til orthopedic changes Full code
[2023-10-03 20:51] LABS: Calcium Oxalate Crystals- Ur Few /HPF (None Seen); Urine Bacteria None Seen /HPF (<20); Urine Bilirubin NEGATIVE (Negative); Urine Blood Negative (Negative); Urine Clarity Extremely Turbid (Clear); Urine Color Yellow (Yellow); Urine Glucose 3+ (Negative); Urine Mucus Slight /HPF (None Seen); Urine Protein TRACE (Negative); Urine RBC <5 /HPF (None Seen); Urine Urobilinogen 1+ (Normal)
[2023-10-03] MEDS: Netarsudil Mesylate [Rhopressa] 2.5 ML Drops OPTH SCH (21:00)
[2023-10-04 04:13] LABS: Absolute Lymphocytes (CBC) 1.5 K/uL (0.7-4.9); Hematocrit 29.7 % (36.0-45.0); Lymphocytes % 17.9 % (15.3-44.8); MCV 89.9 fL (80-100); MPV 7.8 fL (7.6-11.3); Platelets 111 thou/uL (152-406)
[2023-10-04 04:50] LABS: Magnesium 1.9 mg/dL (1.6-2.4); Phosphorus 2.4 mg/dL (2.5-4.9); Potassium 3.8 mEq/L (3.5-5.1)
[2023-10-04] MEDS: INSULIN REGULAR (HUMAN) 100 UNIT/ML SQ SCH ×4 (07:30→20:42)
[2023-10-04] MEDS: NA CHLORIDE 0.9% 1,000 ML IV SCH ×2 (08:00→15:38)
[2023-10-04] MEDS ORDERED: CEFTRIAXONE 1,000 MG in NA CHLORIDE 0.9% 50 ML IVPB ONE (08:30)
[2023-10-04] MEDS: PREDNISOLONE 1% OPTH SOLN 5ML OPTH SCH (08:40)
[2023-10-04] MEDS: NEPAFENAC OPTH SCH (08:40)
[2023-10-04] MEDS: MORPHINE 2 MG/ML SYR IV PRN (08:43)
[2023-10-04] MEDS ORDERED: PREDNISOLONE 1% OPTH SOLN 5ML RIGHT EYE SCH (09:00)
[2023-10-04] MEDS ORDERED: POTASSIUM PHOS IN 0.9 % NACL 15 MMOL/250 ML BAG IV ONE (09:00)
[2023-10-04] MEDS ORDERED: MIDAZOLAM HCL 2 MG/2 ML INJ ONE (10:28)
[2023-10-04] MEDS ORDERED: propofoL 200 MG/20 ML VIAL IV ONE (10:28)
[2023-10-04] MEDS ORDERED: FENTANYL CITR 100 MCG/2 ML ONE (10:28)
[2023-10-04] MEDS ORDERED: ONDANSETRON 4 MG/2 ML VIAL ONE (10:29)
[2023-10-04] MEDS ORDERED: dexAMETHasone 10 MG/ML VIAL ONE (10:29)
[2023-10-04] MEDS ORDERED: KETOROLAC 30 MG/ML INJ ONE (10:29)
[2023-10-04] MEDS ORDERED: LIDOCAINE 2% MPF 5 ML VIAL ONE (10:29)
[2023-10-04] MEDS ORDERED: NA CHLORIDE 0.9% 1,000 ML ONE (10:36)
[2023-10-04] MEDS ORDERED: LIDOCAINE HCL/EPINEPHRINE 20 ML MDV ONE (10:43)
[2023-10-04] MEDS ORDERED: BUPIVACAINE 0.5% PF 10 ML VIAL ONE ×2 (10:43→12:53)
[2023-10-04] MEDS ORDERED: EPINEPHRINE/PF 1 MG/ML AMP ONE (10:43)
[2023-10-04] MEDS ORDERED: TRANEXAMIC ACID 1,000 MG/10 ML VIAL IV ONE (10:57)
[2023-10-04] MEDS ORDERED: CEFAZOLIN SODIUM 2 GM/VIAL ONE (11:00)
[2023-10-04] MEDS ORDERED: NS 0.9% VIAL 10 ML ONE (11:37)
[2023-10-04] MEDS ORDERED: Phenylephrine HCl 10 MG/ML 1 ML VIAL ONE (11:37)
--- NOTE | 2023-10-04 13:00 | P.BOP ---
Preoperative diagnosis: right intertrochanteric femur fracture Postoperative diagnosis: same Primary procedure: cephallomedullary fixation of right intertrochanteric femur fracture Fixed Wing Pilot: NONE,NONE Estimated blood loss: 100 cc Specimen: none Findings: see dictation Anesthesia: General Complications: None Drain(s): Urinary catheter Implants: [employer]omet Affixus nail 54x538 mm 125 degree nail, 95 mm lag screw Fluids & blood products: per anesthesia record Transferred to: Recovery Room Condition: Good
[2023-10-04] MEDS ORDERED: TRAMADOL HCL 50 MG TAB PO PRN (13:05)
[2023-10-04] MEDS ORDERED: ONDANSETRON 4 MG/2 ML VIAL IV PRN (13:05)
[2023-10-04] MEDS ORDERED: DOCUSATE NA 100 MG CAP PO PRN (13:05)
--- NOTE | 2023-10-04 13:56 | RAD REPORT ---
EXAM DESCRIPTION: RAD - Hip Right 2 View - 10/04/2023 1:22 pm CLINICAL HISTORY: postop COMPARISON: <Comparisons> FINDINGS: A single lateral projection of the right hip is submitted. Hardware is noted in expected p ositioning. Skin pau are present.
[2023-10-04 14:16] LABS: Hematocrit 29.9 % (36.0-45.0)
--- NOTE | 2023-10-04 16:13 | RAD REPORT ---
EXAM DESCRIPTION: RAD - Fluoroscopy <1 Hour - 10/04/2023 4:08 pm CLINICAL HISTORY: RT HIP IM RODDING SX COMPARISON: <Comparisons> FINDINGS: Fluoroscopy time: 0.7 minutes
--- NOTE | 2023-10-04 17:47 | P.PN ---
Subjective Date of Service: 10/04/23 Chief Complaint: right femur fracture Subjective: Doing well 10/04 Isadora is doing well, surgery today for right hip fracture with Dr. Welch, tolerated well. Febrile OVN, denies CP, SOB, Review of Systems 10-point ROS is otherwise unremarkable Physical Examination - Vital Signs Temperature: 97.5 F Blood Pressure: 127/50 Pulse: 84 Respirations: 16 Pulse Ox (%): 95 Assessment And Plan - Plan Physical Exam General: Alert, In no apparent distress, Oriented x3 HEENT: Atraumatic, Mucous membr. moist/pink, Sclerae nonicteric Neck: Supple, JVD not distended Respiratory: Clear to auscultation bilaterally, Normal air movement Cardiovascular: No edema, Regular rate/rhythm, Normal S1 S2 Gastrointestinal: Normal bowel sounds, Soft and benign, Non-distended, No tenderness Musculoskeletal: No swelling, right hip dressing C/D/I Integumentary: No rashes, No cyanosis Neurological: Other (No focal motor deficit) Plan Assessment and Plan: Right intertrochanteric femur fracture Trauma fall d/t dizziness Pelvis xray "intertrochanteric fracture right femur extends to the greater trochanter, angulation present at the frature site with mild displacement" Analgesics as needed Consult Dr. Welch-is following. bedrest for now Fever Obtain urinalysis and urine culture Obtain blood culture Start empiric Rocephin Monitor CBC. Elevated troponin Troponin elevated but trended flat. Dr. Georges consulted to evaluate Cardiac clearance needed prior to orthopedic surgery. Diabetes mellitus 2- NIDDM hold metformin accucheck with SIS DVT ppx SCD til orthopedic changes Full code LOS 3 days Discharge Plan: Home Plan to discharge in: 48 Hours Time Spent Managing PTS Care (In Minutes): 35
[2023-10-04] MEDS: Netarsudil Mesylate [Rhopressa] 2.5 ML Drops OPTH SCH (20:43)
[2023-10-04] MEDS: BIMATOPROST OPHTH DROPS/2.5 ML BTL OPTH SCH (20:44)
[2023-10-05 03:41] LABS: Absolute Lymphocytes (CBC) 1.1 K/uL (0.7-4.9); Hematocrit 24.5 % (36.0-45.0); Lymphocytes % 11.9 % (15.3-44.8); MCV 89.8 fL (80-100); MPV 8.1 fL (7.6-11.3); Platelets 131 thou/uL (152-406); RBC Red Blood Cell Count 2.73 M/uL (3.86-4.86)
[2023-10-05] MEDS: NA CHLORIDE 0.9% 1,000 ML IV SCH ×3 (04:00→22:14)
[2023-10-05 04:05] LABS: Magnesium 1.9 mg/dL (1.6-2.4); Phosphorus 2.4 mg/dL (2.5-4.9); Potassium 4.4 mEq/L (3.5-5.1)
[2023-10-05] MEDS: PREDNISOLONE 1% OPTH SOLN 5ML OPTH SCH (09:00)
[2023-10-05] MEDS: NEPAFENAC OPTH SCH (09:00)
[2023-10-05] MEDS: POTASS/SODIUM PHOSPHATE 1 PKT POWD.PACK PO SCH ×3 (09:45→10:14)
[2023-10-05] MEDS: CEFTRIAXONE 1,000 MG in NA CHLORIDE 0.9% 50 ML IVPB SCH (10:09)
[2023-10-05] MEDS: ENOXAPARIN 40 MG/0.4 ML SQ SCH (10:09)
[2023-10-05] MEDS: INSULIN REGULAR (HUMAN) 100 UNIT/ML SQ SCH ×4 (10:10→22:16)
--- NOTE | 2023-10-05 12:10 | ECHO ---
HEIGHT: 5 ft 7 in WEIGHT: 200 lb 0 oz DATE OF STUDY: 10/04/[address]: Linwood Rene MD 2-DIMENSIONAL: YES M.MODE: YES DOPPLER: YES COLOR FLOW: YES TDS: PORTABLE: YES DEFINITY: BUBBLE STUDY: DIAGNOSIS: ELEVATED TROPONIN, CARDIAC CLEARANCE CARDIAC HISTORY: CATHERIZATION: NO SURGERY: NO PROSTHETIC VALVE: NO PACEMAKER: NO MEASUREMENTS (cm) DIASTOLIC (NORMALS) SYSTOLIC (NORMALS) IVSd 1.1 (0.6-1.2) LA Diam 3.5 (1.9-4.0) LVEF 65% LVIDd 4.4 (3.5-5.7) LVIDs 2.8 (2.0-3.5) %FS 35% LVPWd 1.2 (0.6-1.2) Ao Diam 2.5 (2.0-3.7) 2 DIMENSIONAL ASSESSMENT: RIGHT ATRIUM: NORMAL LEFT ATRIUM: NORMAL RIGHT VENTRICLE: NORMAL LEFT VENTRICLE: NORMAL TRICUSPID VALVE: MILD TRICUSPID REGURGITATION MITRAL VALVE: MILD MITRAL REGURGITATION PULMONIC VALVE: NORMAL AORTIC VALVE: NORMAL PERICARDIAL EFFUSION: NONE AORTIC ROOT: NORMAL LEFT VENTRICULAR WALL MOTION: NORMAL DOPPLER/COLOR FLOW: SEE BELOW COMMENTS: 1. NORMAL LEFT VENTRICULAR EJECTION FRACTION 60-65% WITH NORMAL WALL MOTION 2. DIASTOLIC DYSFUNCTION 3. SEVERE PULMONARY HYPERTENSION WITH RIGHT VENTRICULAR SYSTOLIC PRESSURE GREATER THAN 60 mmHg 4. MILD MITRAL REGURGITATION 5. MILD TRICUSPID REGURGITATION TECHNOLOGIST: JERMAINE KHANNA
[2023-10-05] MEDS ORDERED: propofoL 200 MG/20 ML VIAL IV ONE (14:11)
[2023-10-05] MEDS ORDERED: LIDOCAINE 2% MPF 5 ML VIAL ONE (14:12)
[2023-10-05] MEDS ORDERED: ROCURONIUM 50 MG/5 ML VIAL IV ONE (14:12)
--- NOTE | 2023-10-05 15:05 | P.PN ---
Date of Service: 10/05/23 Subjective: Doing well, mild pain after surgery No acute events overnight ROS: 10 point ROS as noted above, otherwise negative Physical exam GEN: Alert, oriented, NAD HEENT: Normal conjunctiva, sclera anicteric CV: Regular rate and rhythm, no edema Pulm: Nonlabored respirations on room air ABD: Soft, nontender, nondistended MSK: Dressing CDI right hip, CMS intact Integumentary: No rashes Neuro: Normal speech, normal affect Vitals reviewed Problem List Right intertrochanteric femur fracture Trauma fall d/t dizziness Pelvis xray "intertrochanteric fracture right femur extends to the greater trochanter, angulation present at the frature site with mild displacement" Analgesics as needed Surgery 10/[address] Welch Working with PT Trying for Inpatient rehab Fever Last fever 10/03, 10/04 TMAX 99.2 Blood cultures NGTD Urince culture preliminary >100,000CFU/ML Alpha Streptococci empiric Rocephin Monitor CBC. Elevated troponin Troponin elevated but trended flat. Dr. Georges consulted to evaluate Diabetes mellitus 2- NIDDM hold metformin accucheck with SIS VTE: Per ortho Code: Full Dispo: Possible inpatient rehab 24-48 hours Time Spent Managing Pts Care (In Minutes): 35
[2023-10-05] MEDS: BIMATOPROST OPHTH DROPS/2.5 ML BTL OPTH SCH (21:00)
[2023-10-05] MEDS: Netarsudil Mesylate [Rhopressa] 2.5 ML Drops OPTH SCH (21:00)
[2023-10-05] MEDS: HYDROCODONE/APAP 7.5/325 MG TAB PO PRN (22:15)
[2023-10-06 06:59] LABS: Absolute Lymphocytes (CBC) 1.7 K/uL (0.7-4.9); Hematocrit 23.9 % (36.0-45.0); MCV 90.8 fL (80-100); MPV 7.6 fL (7.6-11.3); Platelets 164 thou/uL (152-406); RBC Red Blood Cell Count 2.64 M/uL (3.86-4.86)
[2023-10-06 07:11] LABS: Magnesium 1.9 mg/dL (1.6-2.4); Phosphorus 2.3 mg/dL (2.5-4.9); Potassium 4.3 mEq/L (3.5-5.1)
[2023-10-06] MEDS: INSULIN REGULAR (HUMAN) 100 UNIT/ML SQ SCH ×5 (07:30→20:18)
[2023-10-06] MEDS: PREDNISOLONE 1% OPTH SOLN 5ML OPTH SCH (09:00)
[2023-10-06] MEDS: POTASS/SODIUM PHOSPHATE 1 PKT POWD.PACK PO SCH ×3 (09:00→11:53)
[2023-10-06] MEDS: NEPAFENAC OPTH SCH (09:00)
[2023-10-06] MEDS: ENOXAPARIN 40 MG/0.4 ML SQ SCH (09:41)
[2023-10-06] MEDS: CEFTRIAXONE 1,000 MG in NA CHLORIDE 0.9% 50 ML IVPB SCH (09:41)
[2023-10-06] MEDS: HYDROCODONE/APAP 7.5/325 MG TAB PO PRN ×2 (09:42→20:15)
[2023-10-06] MEDS: NA CHLORIDE 0.9% 1,000 ML IV SCH ×2 (09:42→20:00)
--- NOTE | 2023-10-06 09:56 | P.PN ---
Date of Service: 10/06/23 Subjective: Doing well, mild pain after surgery No acute events overnight ROS: 10 point ROS as noted above, otherwise negative Physical exam GEN: Alert, oriented, NAD HEENT: Normal conjunctiva, sclera anicteric CV: Regular rate and rhythm, no edema Pulm: Nonlabored respirations on room air ABD: Soft, nontender, nondistended MSK: Dressing CDI right hip, CMS intact Integumentary: No rashes Neuro: Normal speech, normal affect Vitals reviewed Problem List Right intertrochanteric femur fracture Trauma fall d/t dizziness Pelvis xray "intertrochanteric fracture right femur extends to the greater trochanter, angulation present at the frature site with mild displacement" Analgesics as needed Surgery 10/[address] Welch Working with PT, not able to stand yet Trying for Inpatient rehab Fever Last fever 10/03, 10/04 TMAX 99.2 Blood cultures NGTD Urince culture preliminary >100,000 CFU/ML Alpha Streptococci Sensitive to levaquin, started on PO levaquin 10/06 will need 3-5 days Monitor CBC. Elevated troponin Troponin elevated but trended flat. Dr. Georges consulted to evaluate Echo with diastolic dysfunction and pulmonary hypertension Recommend outpatient cardiology workup/follow up Diabetes mellitus 2- NIDDM hold metformin accucheck with SIS VTE: Per ortho Code: Full Dispo: Possible inpatient rehab 24-48 hours Time Spent Managing Pts Care (In Minutes): 35
[2023-10-06] MEDS ORDERED: levoFLOXacin 750 MG TAB PO SCH (10:30)
[2023-10-06] MEDS: AMOX/K CLAV 875 MG TAB PO SCH ×2 (11:52→20:15)
--- NOTE | 2023-10-06 17:06 | EKG ---
Test Date: 2023-10-02 Test Time: 12:46:56 Marine Operations Coordinator: OTTO MEASUREMENT RESULTS: Intervals: Rate: 104 NC: 188 QRSD: 82 QT: 354 QTc: 465 Sidell: P: 84 NC: 188 QRS: -2 T: 33 INTERPRETIVE STATEMENTS: Sinus tachycardia Otherwise normal ECG No previous ECG available for comparison Electronically Signed On 10-06-23 16:55:15 CORDUROY CUTTER OPERATOR by Gurwinder Georges
[2023-10-06] MEDS: BIMATOPROST OPHTH DROPS/2.5 ML BTL OPTH SCH (20:18)
[2023-10-06] MEDS: Netarsudil Mesylate [Rhopressa] 2.5 ML Drops OPTH SCH (20:18)
[2023-10-07] MEDS: INSULIN REGULAR (HUMAN) 100 UNIT/ML SQ SCH ×4 (07:30→22:55)
[2023-10-07] MEDS: NEPAFENAC OPTH SCH (08:24)
[2023-10-07] MEDS: PREDNISOLONE 1% OPTH SOLN 5ML OPTH SCH (08:24)
[2023-10-07] MEDS: NA CHLORIDE 0.9% 1,000 ML IV SCH ×2 (08:38→15:36)
[2023-10-07] MEDS: AMOX/K CLAV 875 MG TAB PO SCH ×2 (08:39→22:59)
[2023-10-07] MEDS: ENOXAPARIN 40 MG/0.4 ML SQ SCH (08:39)
[2023-10-07] MEDS: HYDROCODONE/APAP 7.5/325 MG TAB PO PRN ×3 (08:40→22:58)
--- NOTE | 2023-10-07 11:18 | P.PN ---
Date of Service: 10/07/23 Subjective: Doing well, mild pain after surgery No acute events overnight Able to stand up yesterday with Occupational Therapy ROS: 10 point ROS as noted above, otherwise negative Physical exam GEN: Alert, oriented, NAD HEENT: Normal conjunctiva, sclera anicteric CV: Regular rate and rhythm, no edema Pulm: Nonlabored respirations on room air ABD: Soft, nontender, nondistended MSK: Dressing CDI right hip, CMS intact Integumentary: No rashes Neuro: Normal speech, normal affect Vitals reviewed Problem List Right intertrochanteric femur fracture Trauma fall d/t dizziness Pelvis xray "intertrochanteric fracture right femur extends to the greater trochanter, angulation present at the frature site with mild displacement" Analgesics as needed Surgery 10/[address] Welch Working with PT, was able to stand yesterday with Occupational Therapy Trying for Inpatient rehab UTI, fever Last fever 10/03, 10/04 TMAX 99.2 Blood cultures NGTD Urince culture with Enterococcus faecalis Started on Augmentin p.o. will need additional 4 days ending 10/11/2023 Monitor CBC. Elevated troponin Troponin elevated but trended flat. Dr. Georges consulted to evaluate Echo with diastolic dysfunction and pulmonary hypertension Recommend outpatient cardiology workup/follow up with plan for outpatient stress test Discussed with patient Diabetes mellitus 2- NIDDM hold metformin accucheck with SIS VTE: Per ortho Code: Full Dispo: Possible inpatient rehab 24-48 hours Time Spent Managing Pts Care (In Minutes): 35
[2023-10-07 16:23] LABS: Absolute Lymphocytes (CBC) 1.4 K/uL (0.7-4.9); Hematocrit 25.1 % (36.0-45.0); MCV 89.7 fL (80-100); MPV 7.2 fL (7.6-11.3); Platelets 233 thou/uL (152-406); RBC Red Blood Cell Count 2.81 M/uL (3.86-4.86)
[2023-10-07 16:32] LABS: Magnesium 1.8 mg/dL (1.6-2.4); Phosphorus 2.6 mg/dL (2.5-4.9)
[2023-10-07] MEDS: BIMATOPROST OPHTH DROPS/2.5 ML BTL OPTH SCH (21:00)
[2023-10-07] MEDS: Netarsudil Mesylate [Rhopressa] 2.5 ML Drops OPTH SCH (21:00)
[2023-10-08] MEDS: NA CHLORIDE 0.9% 1,000 ML IV SCH (06:30)
[2023-10-08] MEDS: HYDROCODONE/APAP 7.5/325 MG TAB PO PRN ×2 (07:16→20:59)
[2023-10-08] MEDS: INSULIN REGULAR (HUMAN) 100 UNIT/ML SQ SCH ×4 (08:39→21:00)
[2023-10-08] MEDS: AMOX/K CLAV 875 MG TAB PO SCH ×2 (08:40→20:59)
[2023-10-08] MEDS: ENOXAPARIN 40 MG/0.4 ML SQ SCH (08:40)
[2023-10-08] MEDS: NEPAFENAC OPTH SCH (08:41)
[2023-10-08] MEDS: PREDNISOLONE 1% OPTH SOLN 5ML OPTH SCH (08:41)
[2023-10-08] MEDS ORDERED: MAGNESIUM SULFATE 1 gm IVPB 1 GM/100 ML BAG IV ONE (09:00)
--- NOTE | 2023-10-08 10:12 | P.PN ---
Date of Service: 10/08/23 Subjective: Doing well, mild pain after surgery No acute events overnight Able to stand up with occupational therapy working with PT ROS: 10 point ROS as noted above, otherwise negative Physical exam GEN: Alert, oriented, NAD HEENT: Normal conjunctiva, sclera anicteric CV: Regular rate and rhythm, no edema Pulm: Nonlabored respirations on room air ABD: Soft, nontender, nondistended MSK: Dressing CDI right hip, CMS intact Integumentary: No rashes Neuro: Normal speech, normal affect Vitals reviewed Problem List Right intertrochanteric femur fracture Trauma fall d/t dizziness Pelvis xray "intertrochanteric fracture right femur extends to the greater trochanter, angulation present at the frature site with mild displacement" Analgesics as needed Surgery 10/[address] Welch Working with PT, was able to stand with Occupational Therapy working with PT Trying for Inpatient rehab UTI, fever Last fever 10/03, 10/04 TMAX 99.2 Blood cultures NGTD Urince culture with Enterococcus faecalis Started on Augmentin p.o. will need additional 4 days ending 10/11/2023 Monitor CBC. Elevated troponin Troponin elevated but trended flat. Dr. Georges consulted to evaluate Echo with diastolic dysfunction and pulmonary hypertension Recommend outpatient cardiology workup/follow up with plan for outpatient stress test Discussed with patient Diabetes mellitus 2- NIDDM hold metformin accucheck with SIS VTE: lovenox Code: Full Dispo: Possible inpatient rehab 24-48 hours Time Spent Managing Pts Care (In Minutes): 25
[2023-10-08] MEDS ORDERED: MORPHINE 2 MG/ML SYR IV PRN (10:16)
[2023-10-08] MEDS: Netarsudil Mesylate [Rhopressa] 2.5 ML Drops OPTH SCH (21:00)
[2023-10-08] MEDS: BIMATOPROST OPHTH DROPS/2.5 ML BTL OPTH SCH (21:00)
[2023-10-09] MEDS: HYDROCODONE/APAP 7.5/325 MG TAB PO PRN ×3 (03:49→20:01)
[2023-10-09] MEDS: INSULIN REGULAR (HUMAN) 100 UNIT/ML SQ SCH ×4 (07:30→20:02)
[2023-10-09] MEDS: METFORMIN HCL 500 MG TAB PO SCH ×2 (07:43→16:09)
[2023-10-09] MEDS: ENOXAPARIN 40 MG/0.4 ML SQ SCH (07:43)
[2023-10-09] MEDS: AMOX/K CLAV 875 MG TAB PO SCH ×2 (07:43→20:01)
[2023-10-09] MEDS: NEPAFENAC OPTH SCH (07:44)
[2023-10-09] MEDS: PREDNISOLONE 1% OPTH SOLN 5ML OPTH SCH (07:44)
[2023-10-09 08:17] LABS: Magnesium 1.8 mg/dL (1.6-2.4); Potassium 4.3 mEq/L (3.5-5.1)
--- NOTE | 2023-10-09 10:05 | P.PN ---
Date of Service: 10/09/23 Subjective: Doing well, mild pain after surgery No acute events overnight Able to stand up with occupational therapy working with PT ROS: 10 point ROS as noted above, otherwise negative Physical exam GEN: Alert, oriented, NAD HEENT: Normal conjunctiva, sclera anicteric CV: Regular rate and rhythm, no edema Pulm: Nonlabored respirations on room air ABD: Soft, nontender, nondistended MSK: Dressing CDI right hip, CMS intact Integumentary: No rashes Neuro: Normal speech, normal affect Vitals reviewed Problem List Right intertrochanteric femur fracture Trauma fall d/t dizziness Pelvis xray "intertrochanteric fracture right femur extends to the greater trochanter, angulation present at the frature site with mild displacement" Analgesics as needed Surgery 10/[address] Welch Working with PT, was able to stand with Occupational Therapy Declined for inp. rehab, working on skilled placement now UTI, fever Last fever 10/03, 10/04 TMAX 99.2 Blood cultures NGTD Urince culture with Enterococcus faecalis Started on Augmentin p.o. will need additional 4 days ending 10/11/2023 Monitor CBC. Elevated troponin Troponin elevated but trended flat. Dr. Georges consulted to evaluate Echo with diastolic dysfunction and pulmonary hypertension Recommend outpatient cardiology workup/follow up with plan for outpatient stress test Discussed with patient Diabetes mellitus 2- NIDDM hold metformin accucheck with SIS VTE: lovenox Code: Full Dispo: Possible DC to SNF 1-2 days Time Spent Managing Pts Care (In Minutes): 25
[2023-10-09] MEDS ORDERED: MAGNESIUM SULFATE 1 gm IVPB 1 GM/100 ML BAG IV ONE (12:00)
[2023-10-09] MEDS: BIMATOPROST OPHTH DROPS/2.5 ML BTL OPTH SCH (20:02)
[2023-10-09] MEDS: Netarsudil Mesylate [Rhopressa] 2.5 ML Drops OPTH SCH (20:02)
[2023-10-10] MEDS: INSULIN REGULAR (HUMAN) 100 UNIT/ML SQ SCH ×4 (07:30→20:38)
[2023-10-10 07:41] LABS: Magnesium 1.9 mg/dL (1.6-2.4); Potassium 4.7 mEq/L (3.5-5.1)
[2023-10-10 07:48] LABS: Hematocrit 24.5 % (36.0-45.0); MCV 90.3 fL (80-100); MPV 6.8 fL (7.6-11.3); Platelets 287 thou/uL (152-406); RBC Red Blood Cell Count 2.71 M/uL (3.86-4.86)
[2023-10-10 08:01] LABS: Ferritin 112.9 ng/mL (8-388)
[2023-10-10] MEDS: METFORMIN HCL 500 MG TAB PO SCH ×2 (08:14→16:24)
[2023-10-10] MEDS: ENOXAPARIN 40 MG/0.4 ML SQ SCH (08:14)
[2023-10-10] MEDS: AMOX/K CLAV 875 MG TAB PO SCH ×2 (08:14→20:38)
[2023-10-10] MEDS: PREDNISOLONE 1% OPTH SOLN 5ML OPTH SCH (08:15)
[2023-10-10] MEDS: NEPAFENAC OPTH SCH (08:15)
--- NOTE | 2023-10-10 13:17 | P.PN ---
Date of Service: 10/10/23 Subjective: Doing well, mild pain after surgery No acute events overnight Able to stand up with occupational therapy not able to walk yet, has previous recent right humeral fracture limiting ability working with PT ROS: 10 point ROS as noted above, otherwise negative Physical exam GEN: Alert, oriented, NAD HEENT: Normal conjunctiva, sclera anicteric CV: Regular rate and rhythm, no edema Pulm: Nonlabored respirations on room air ABD: Soft, nontender, nondistended MSK: Dressing CDI right hip, CMS intact, swelling of RLE noted Integumentary: No rashes Neuro: Normal speech, normal affect Vitals reviewed Problem List Right intertrochanteric femur fracture Trauma fall d/t dizziness Pelvis xray "intertrochanteric fracture right femur extends to the greater trochanter, angulation present at the fracture site with mild displacement" Analgesics as needed Surgery 10/[address] Welch Working with PT, was able to stand with Occupational Therapy Declined for inp. rehab, working on skilled placement now Doing well, frustrated with progression thus far UTI Last fever 10/03, 10/04 TMAX 99.2 Blood cultures NGTD Urince culture with Enterococcus faecalis Started on Augmentin p.o. will need additional 1 day ending 10/11/2023 Monitor CBC. Elevated troponin Troponin elevated but trended flat. Dr. Georges consulted to evaluate Echo with diastolic dysfunction and pulmonary hypertension Recommend outpatient cardiology workup/follow up with plan for outpatient stress test Discussed with patient Iron deficiency anemia Discussed with patient Outpatient PO iron as tolerated Diabetes mellitus 2- NIDDM hold metformin accucheck with SIS VTE: lovenox Code: Full Dispo: Possible DC to SNF 1-2 days Time Spent Managing Pts Care (In Minutes): 25 <Terrence Deal - Last Filed: 10/10/23 13:15> Patient seen and examined on rounds this morning. Plan of care discussed with BAGGAGEMAN Say. Agree with plan as noted above with the following additions/corrections: RLE edematous > LLE ROM ok with assistance, limited knee flexion secondary to swelling / pain on DVT prophylaxis, continue PT echo reviewed, severe pulm HTN, diastolic dysfxn will give low dose of lasix x1 <Wing Perla - Last Filed: 10/10/23 15:34>
[2023-10-10] MEDS ORDERED: FUROSEMIDE 20 MG TABLET PO ONE (14:04)
[2023-10-10] MEDS: HYDROCODONE/APAP 7.5/325 MG TAB PO PRN ×2 (14:45→20:37)
[2023-10-10] MEDS: BIMATOPROST OPHTH DROPS/2.5 ML BTL OPTH SCH (20:38)
[2023-10-10] MEDS: Netarsudil Mesylate [Rhopressa] 2.5 ML Drops OPTH SCH (20:39)
[2023-10-11] MEDS: HYDROCODONE/APAP 7.5/325 MG TAB PO PRN ×3 (03:30→20:29)
[2023-10-11] MEDS: INSULIN REGULAR (HUMAN) 100 UNIT/ML SQ SCH ×4 (07:30→20:25)
[2023-10-11] MEDS: AMOX/K CLAV 875 MG TAB PO SCH ×2 (07:59→20:24)
[2023-10-11] MEDS: ENOXAPARIN 40 MG/0.4 ML SQ SCH (07:59)
[2023-10-11] MEDS: METFORMIN HCL 500 MG TAB PO SCH ×2 (07:59→16:02)
[2023-10-11] MEDS: NEPAFENAC OPTH SCH (08:00)
[2023-10-11] MEDS: PREDNISOLONE 1% OPTH SOLN 5ML OPTH SCH (08:00)
[2023-10-11 10:13] VITALS: O2SAT 96
--- NOTE | 2023-10-11 18:27 | P.PN ---
Date of Service: 10/11/23 Subjective: In good spirits Working with PT/OT, dressing C/D/I Right lower extremity edema improved SNF initiated today, will continue to follow ROS: 10 point ROS as noted above, otherwise negative Physical exam GEN: Alert, oriented, NAD HEENT: Normal conjunctiva, sclera anicteric CV: Regular rate and rhythm, no edema Pulm: Nonlabored respirations on room air ABD: Soft, nontender, nondistended MSK: Dressing CDI right hip, CMS intact, swelling of RLE noted, 2+ peripheral pulses present Integumentary: No rashes Neuro: Normal speech, normal affect Vitals reviewed Problem List Right intertrochanteric femur fracture Trauma fall d/t dizziness Pelvis xray "intertrochanteric fracture right femur extends to the greater trochanter, angulation present at the fracture site with mild displacement" Analgesics as needed Surgery 10/[address] Welch Working with PT, was able to stand with Occupational Therapy Declined for inp. rehab, working on skilled placement now Doing well, frustrated with progression thus far UTI Last fever 10/03, 10/04 TMAX 99.2 Blood cultures NGTD Urince culture with Enterococcus faecalis Started on Augmentin p.o. will need additional 1 day ending 10/11/2023 Monitor CBC. Elevated troponin Diastolic dysfunction Severe pulmonary hypertension Troponin elevated but trended flat. Appears euvolemic- R>L swelling LE after surgery New diagnosis-Cardiology recommends followup/OP stress Discussed with patient given one PO dose of lasix 10/10 Iron deficiency anemia Discussed with patient Outpatient PO iron as tolerated Diabetes mellitus 2- NIDDM hold metformin accucheck with SIS DVT ppx- lovenox Full code LOS 2-3 days- pending placement
[2023-10-11] MEDS: BIMATOPROST OPHTH DROPS/2.5 ML BTL OPTH SCH (20:25)
[2023-10-11] MEDS: Netarsudil Mesylate [Rhopressa] 2.5 ML Drops OPTH SCH (20:25)
[2023-10-12] MEDS: INSULIN REGULAR (HUMAN) 100 UNIT/ML SQ SCH ×2 (08:37→20:23)
[2023-10-12] MEDS: METFORMIN HCL 500 MG TAB PO SCH (08:37)
[2023-10-12] MEDS: ENOXAPARIN 40 MG/0.4 ML SQ SCH (08:42)
[2023-10-12] MEDS: PREDNISOLONE 1% OPTH SOLN 5ML OPTH SCH (09:00)
[2023-10-12] MEDS: NEPAFENAC OPTH SCH (09:00)
--- NOTE | 2023-10-12 10:47 | P.OP ---
Preoperative diagnosis: right intertrochanteric femur fracture Postoperative diagnosis: same Primary procedure: cephallomedullary fixation of right intertrochanteric femur fracture Anesthesia: general Estimated blood loss: 100 cc Specimen: none Findings: see dictation Operative Technique: Indication For Procedure: Isadora is a 67-year-old female, who presented to the emergency room after a fall with right hip pain and inability to bear weight. Imaging demonstrated a right intertrochanteric femur fracture. I Discussed with the patient at length risks and benefits associated with operative and nonoperative treatment. She expressed understanding and elected to proceed with operative treatment. Description Of Procedure: After informed consent was obtained, the patient was identified in the preoperative holding area. The right lower extremity was marked. The patient was brought back to the operating room, transferred to the operating table in supine fashion, placed under general anesthesia. She was placed on the fracture table with her extremities well padded and gentle traction was placed on the right lower extremity and closed reduction was obtained and confirmed using fluoroscopy. Once adequate reduction was obtained, the right lower extremity was then prepped and draped in the usual sterile fashion. A time-out was initiated. Correct patient and procedure were confirmed and identified. The patient received preoperative prophylactic antibiotics. An approximately 8 cm in length incision proximal to the greater trochanter was made and dissection was taken down to the greater trochanter . A guide pin was then placed in the tip of the greater trochanter down the femoral canal in an antegrade fashion. Proper positioning was confirmed using fluoroscopy. An entry reamer was then placed over the guide pin. A ball-tip guidewire was then placed down the proximal segment into the distal fragment. Preoperative measurement confirmed 125 degree nail to be selected. Next, over the guidewire, the femoral canal was reamed starting with an 8 mm reamer and increasing in 1 mm increments until an 15 mm reamer was placed. Preoperative imaging was reviewed and am 13 x 180 mm nail was placed with 125 degrees. Once the nail was placed with good overall reduction of the fracture, a 6 cm incision was made over the lateral thigh for placement of the lag screw and a size 95 mm lag screw was placed. Using the jig, compression was placed on the fracture using the lag screw and star compression device on the jig. Fluoroscopy was then used to confirm hardware placement with overall good maintenance reduction of the fracture. The lag screw was then locked into position using the set screw within the nail. Traction was then released and a single distal interlocking screw was placed in the nail. The wounds were then irrigated thoroughly with normal saline. Subcutaneous deep tissue was approximated using 0 Vicryl. Subcutaneous tissue was approximated using 2-0 Vicryl. Skin was approximated using pau. Sterile dressings were applied. The patient was awakened and transferred to PACU in stable condition. Postoperative Plan: The patient will be weightbearing as tolerated of her right lower extremity. Physical therapy will be consulted. She may follow up in clinic in 2 weeks for wound check and staple removal. Complications: None Drain(s): Urinary catheter Implants: Biomet Affixus nail, [id number] mm nail, 95 mm lag screw Fluids & blood products: per anesthesia record Transferred to: Recovery Room Condition: Good
[2023-10-12] MEDS: HYDROCODONE/APAP 7.5/325 MG TAB PO PRN ×2 (13:54→20:22)
[2023-10-12 16:01] VITALS: BP 141/69; TEMP 97.3
[2023-10-12 16:02] LABS: SARS-COV-2 RT PCR NEGATIVE (NEGATIVE)
--- NOTE | 2023-10-12 16:12 | P.DS ---
Admission Date: 10/02/23 Discharge Date: 10/12/23 Disposition: TRANSFER TO SNF - REHAB Discharge Condition: FAIR Reason for Admission: right femur fracture Brief History of Present Illness: Isadora Fall is a 67-year-old woman with past medical history of diabetes mellitus 2-NIDDM and glaucoma who presented to the ED today via ambulance due to fall at home. Pt reported standing up out of bed and becoming dizzy and while rushing to the bathroom, she fell. Initial vitals BP 100 / 52; Pulse 104; Resp 17; Temp 99(O); Pulse Ox 100%, significant labs WBC 14, troponin 179.0, alk phos 150, proBNP 878, PT/INR 12.5/1.14. CT pelvis reported "ntertrochanteric fracture right femur extends to the greater trochanter. Angulation present at the fracture site with mild displacement. X-ray right femur reported "Intertrochanteric fracture right femur extends to the greater trochanter. Angulation present at the fracture site with mild displacement." Therapeutic surgeon . Orthopedic surgeon Dr. Welch informed and patient was admitted for further management. Hospital Course: Patient was admitted to the medical floor and the following medical problems addressed: Right intertrochanteric femur fracture Trauma fall d/t dizziness Pelvis x-ray "intertrochanteric fracture, right femur extending to the greater trochanter, angulation present at the fracture site with mild displacement" Analgesics as needed Patient seen by Dr. Georges for cardiology clearance for surgery. ORIF on 10/[address] Welch. Patient worked with PT and OT Insurance declined for inp. rehab. Clinically stable for discharge. UTI Last fever 10/03, 10/04 TMAX 99.2 Blood cultures NGTD Urince culture grew Enterococcus faecalis Completed antibiotics for UTI. Elevated troponin Diastolic dysfunction Severe pulmonary hypertension Troponin elevated but trended flat. Appears euvolemic- R>L swelling LE after surgery New diagnosis-Cardiology recommends followup and OP stress Patient is aware of follow-up with cardiology. Iron deficiency anemia Outpatient PO iron as tolerated. Diabetes mellitus 2- NIDDM held metformin during the hospital stay and resumed it on discharge. Blood glucose managed with insulin sliding scale during the hospital stay. Vital Signs/Physical Exam: Temp Pulse Resp BP Pulse Ox 97.3 F 86 17 141/69 H 99 10/12/23 15:48 10/12/23 15:48 10/12/23 15:48 10/12/23 15:48 10/12/23 15:48 General: Alert, In no apparent distress, Oriented x3 HEENT: Mucous membr. moist/pink Neck: JVD not distended Respiratory: Clear to auscultation bilaterally, Normal air movement Cardiovascular: No edema, Regular rate/rhythm, Normal S1 S2 Gastrointestinal: Normal bowel sounds, Soft and benign, Non-distended Musculoskeletal: No swelling Integumentary: No rashes, No cyanosis Neurological: Normal strength at 5/5 x4 extr Laboratory Data at Discharge: WBC 7.00 thou/uL (4.3-10.9) 10/10/23 07:08 Hgb 8.4 g/dL (12.0-15.0) L 10/10/23 07:08 Hct 24.5 % (36.0-45.0) L 10/10/23 07:08 Plt Count 287 thou/uL (152-406) 10/10/23 07:08 PT 12.5 SECONDS (9.5-12.5) 10/02/23 12:34 INR 1.14 10/02/23 12:34 Sodium 136 mEq/L (136-145) 10/10/23 07:08 Potassium 4.7 mEq/L (3.5-5.1) 10/10/23 07:08 BUN 24 mg/dL (7-18) H 10/10/23 07:08 Creatinine 0.59 mg/dL (0.55-1.02) 10/10/23 07:08 Glucose 223 mg/dL (74-106) H 10/10/23 07:08 Phosphorus 2.6 mg/dL (2.5-4.9) 10/07/23 15:58 Magnesium 1.9 mg/dL (1.6-2.4) 10/10/23 07:08 Total Bilirubin 0.9 mg/dL (0.2-1.0) 10/02/23 12:34 AST 37 U/L (15-37) 10/02/23 12:34 ALT 31 U/L (13-56) 10/02/23 12:34 Alkaline Phosphatase 150 U/L (45-117) H 10/02/23 12:34 Home Medications: Bimatoprost [Lumigan Opthalmic Drops*] 1 gtt OPTH BEDTIME 10/02/23 Metformin HCl 500 mg PO BID 10/02/23 Nepafenac [Ilevro] 1 gtt OPTH DAILY 10/02/23 Netarsudil Mesylate [Rhopressa] 1 gtt OPTH BEDTIME 10/02/23 Prednisolone Acetate 1 drop RIGHT EYE DAILY 10/02/23 Apixaban [Eliquis] 2.5 mg PO BID #42 tablet 10/12/23 Hydrocodone 7.5/APAP 325 [Otis 7.5/325 mg*] 1 tab PO Q6H PRN 4 Days #15 tab 10/12/23 New Medications: Apixaban [Eliquis] 2.5 mg PO BID #42 tablet Hydrocodone 7.5/APAP 325 [Otis 7.5/325 mg*] 1 tab PO Q6H PRN 4 Days #15 tab PRN Reason: Pain Scale 8-10 (Severe) Physician Discharge Instructions: 1. Follow up with Dr. Welch for continued orthopedic management 2. Follow up with PCP for continued medical management 3. Continue diabetic diet 4. Continue with physical therapy New medication Otis 7.5/325 PO Q6H PRn for pain Diet: ADA Followup: Duke Rivera DO [Primary Care Provider] - Shayne Welch MD [ACTIVE - CAN ADMIT] - (Within 2-3 weeks ) Time spent managing pt's care (in minutes): 33
== END 2023-10-12 20:35 | DRG 481 ==
LOC: ER 12:22 → ERHOLD 15:23 → 4TH 18:39
PROVIDERS: ADMIT Internal Medicine; ATTEND Internal Medicine
PROC: 0QS636Z Reposition Right Upper Femur with Intramedullary Internal Fixation Device, Percutaneous Approach (ICD-10-PCS; principal; 2023-10-04 11:00)
DX: S72.141A Displaced intertrochanteric fracture of right femur, initial encounter for closed fracture (principal); N39.0 Urinary tract infection, site not specified; E11.39 Type 2 diabetes mellitus with other diabetic ophthalmic complication; H42 Glaucoma in diseases classified elsewhere; E83.42 Hypomagnesemia; D50.9 Iron deficiency anemia, unspecified; D72.829 Elevated white blood cell count, unspecified; I27.20 Pulmonary hypertension, unspecified; B95.2 Enterococcus as the cause of diseases classified elsewhere; R77.8 Other specified abnormalities of plasma proteins; Z79.01 Long term (current) use of anticoagulants; Z79.84 Long term (current) use of oral hypoglycemic drugs; Z79.52 Long term (current) use of systemic steroids; Z11.52 Encounter for screening for COVID-19; Z79.899 Other long term (current) drug therapy; W06.XXXA Fall from bed, initial encounter; Y93.89 Activity, other specified; Y92.013 Bedroom of single-family (private) house as the place of occurrence of the external cause; Y99.9 Unspecified external cause status
CPT/HCPCS: 0241U; 31720; 36415; 71045; 72170; 76000; 80048; 80076; 81001; 82728; 82947; 83540; 83735; 83880; 84100; 84466; 84484; 85014; 85018; 85025; 85027; 85610; 86850; 86900; 86901; 87040; 87077; 87086; 87088; 87186; 93005; 93306; 94010; 96361; 96365; 96366; 96375; 97110; 97161; 97165; 97530; 99285; A4216; J0171; J0696; J1100; J1650; J1815; J2001; J2250; J2270; J2371; J2405; J2704; J3010; J3475; J7030